=== PATIENT | female | born 1985 | race Asian ===

== ENCOUNTER 2024-04-20 06:40 | Outpatient (REF) | payer OTHER, SELFPAY | END 2024-04-20 06:41 | disposition home or self-care (01) | LOC: HO.UMASIMG 06:40 | PROVIDERS: Visit Provider Family Medicine | DX: Z13.89 Encounter for screening for other disorder (principal) ==

== ENCOUNTER 2024-05-23 06:09 | Outpatient (REF) | payer OTHER, SELFPAY ==
--- NOTE | ~2024-05-23 | US_ITS ---
CLINICAL HISTORY: IRREGULAR MENSTRUATION US pelvis transabdominal and transvaginal Comparison: None Findings: Transabdominal scanning performed for overall anatomy. Transvaginal scanning performed for additional detail. Retroverted uterus is 7.8 cm length. Normal myometrium. Endometrium 10 mm thickness. Right ovary 3.7 x 2.2 x 2.4 cm. Left ovary 2.9 x 1.6 x 1.3 cm. 2 cm right ovarian cyst, compatible with a dominant follicle. Normal color Doppler of both ovaries. No free fluid. IMPRESSION: 1. Unremarkable pelvic ultrasound This document has been electronically signed by: Deborah Drake MD on 05/24/2024 17:06:45
== END 2024-05-23 06:10 | disposition home or self-care (01) ==
LOC: HO.UMASIMG 06:09
PROVIDERS: Visit Provider Family Medicine
DX: N92.6 Irregular menstruation, unspecified (principal)
CPT/HCPCS: 76830; 76856

== ENCOUNTER → 2024-05-23 10:00 | Outpatient (BNV) | payer OTHER, SELFPAY | PROVIDERS: Visit Provider Radiology Diagnostic Radiology | DX: N92.6 Irregular menstruation, unspecified (principal) | CPT/HCPCS: 76830; 76856 ==